=== PATIENT | female | born 1980 | race Caucasian/White ===

== ENCOUNTER 2025-05-06 08:53 | Observation (INO) | payer OTHER ==
[2025-05-06 09:31] LABS: BASO # 0.1 10^3/uL (0.0-0.2); BASO % 1.1 % (0.0-1.0); EOS # 0.0 10^3/uL (0.0-0.5); EOS % 0.5 % (0.0-3.0); LYMPH # 3.4 10^3/uL (1.5-5.0); LYMPH % 39.5 % (24.0-44.0); MONO # 0.7 10^3/uL (0.0-0.8); MONO % 7.6 % (2.0-8.0); NEUTROPHILS # 4.4 10^3/uL (1.5-8.5); NEUTROPHILS % 51.1 % (36.0-66.0); PLATELET COUNT, AUTOMATED 143 10^3/uL (150-450)
[2025-05-06 09:54] LABS: ALT/SGPT 97 U/L (7.0-40); AST/SGOT 142 U/L (<34); CALCIUM LEVEL 8.1 MG/DL (8.5-10.1); CARBON DIOXIDE LEVEL 22 MMOL/L (20-31); CHLORIDE LEVEL 105 MMOL/L (98-107); CREATININE FOR GFR 0.52 MG/DL (0.55-1.30); GLOMERULAR FILTRATION RATE > 90.0 (>58); POTASSIUM SERUM 4.9 MMOL/L (3.5-5.1); SALICYLATE LEVEL < 3.0 MG/DL (<30); SODIUM LEVEL 144 MMOL/L (136-145)
[2025-05-06 10:01] LABS: AMPHETAMINES LEVEL URINE NEGATIVE (NEGATIVE)
[2025-05-06 10:02] LABS: BARBITURATES URINE NEGATIVE (NEGATIVE); BENZODIAZEPINES URINE NEGATIVE (NEGATIVE); CANNABINOIDS URINE NEGATIVE (NEGATIVE); COCAINE METABOLITE URINE POSITIVE (NEGATIVE); METHADONE URINE NEGATIVE (NEGATIVE); OPIATES URINE NEGATIVE (NEGATIVE); PHENCYCLIDINE URINE NEGATIVE (NEGATIVE)
[2025-05-06 10:06] LABS: CPK CREATINE PHOSPHOKINASE 323 U/L (34-145); ETHYL ALCOHOL (ETHANOL) 0.520 % (0.000-0.010)
[2025-05-06] MEDS: NS (Normal Saline) 0.9% 1,000 ML IV ONE (10:45)
[2025-05-06] MEDS ORDERED: THIAMINE 200MG 2ML VIAL IV SCH (11:55)
[2025-05-06 12:18] LABS: HCG, SERUM QUALITATIVE NEGATIVE (NEGATIVE)
[2025-05-06] MEDS ORDERED: HOME MED LIST COMPLETE! XX SCH (13:05)
[2025-05-06] MEDS: THIAMINE INJection 500 MG in NS 100 ML IV SCH ×2 (13:10→22:10)
[2025-05-06] MEDS: HALOPERIDOL LACTATE 5 MG/ML VIAL IM ONE (14:04)
[2025-05-06] MEDS: diphenhydrAMINE 50 MG/ML VIAL IM ONE (14:04)
[2025-05-06] MEDS: FOLIC ACID 1 MG TAB PO SCH (16:18)
[2025-05-06] MEDS: MULTIVITAMINS/MINERALS THERAP 1 TAB PO SCH (16:19)
[2025-05-06 16:34] VITALS: BP 126/65; TEMP 99.2; O2SAT 98
[2025-05-06] MEDS: NICOTINE 21 MG/24 HR 1 EA TRANSDERMAL TD SCH (16:44)
[2025-05-06] MEDS: HALOPERIDOL LACTATE 5 MG/ML VIAL IM PRN (16:50)
[2025-05-06] MEDS ORDERED: POLYVINYL ALCOHOL OPHTH SOLN 15ML (LIQUITEARS) OU PRN (17:00)
[2025-05-06] MEDS: ONDANSETRON 4MG 2ML VIAL IV SCH (17:43)
[2025-05-06] MEDS ORDERED: ONDANSETRON 4MG 2ML VIAL IV PRN (18:00)
[2025-05-06] MEDS: NS (Normal Saline) 0.9% 1,000 ML IV SCH (19:42)
[2025-05-06 19:56] VITALS: BP 133/71; TEMP 99.3; O2SAT 99
[2025-05-06 21:35] VITALS: BP 129/71
[2025-05-07] VITALS (10 sets, daily range): BP systolic 132–165; BP diastolic 80–88; TEMP 99.1–100.4; O2SAT 97–98
[2025-05-07 05:43] LABS: PLATELET COUNT, AUTOMATED 110 10^3/uL (150-450)
[2025-05-07 06:10] LABS: CALCIUM LEVEL 8.0 MG/DL (8.5-10.1); CARBON DIOXIDE LEVEL 21 MMOL/L (20-31); CHLORIDE LEVEL 102 MMOL/L (98-107); CREATININE FOR GFR 0.64 MG/DL (0.55-1.30); GLOMERULAR FILTRATION RATE > 90.0 (>58); POTASSIUM SERUM 3.8 MMOL/L (3.5-5.1); SODIUM LEVEL 137 MMOL/L (136-145)
[2025-05-07] MEDS: ENOXAPARIN 40 MG/0.4 ML SYRINGE (J1650 PER 10MG) SC SCH (08:22)
[2025-05-07] MEDS: ACETAMINOPHEN 325 MG TAB PO PRN (12:54)
[2025-05-07] MEDS ORDERED: THERTAB19 PO (15:49)
[2025-05-07] MEDS ORDERED: THIA100TA PO (15:49)
[2025-05-07] MEDS ORDERED: FOLI1TAB11 PO (15:49)
[2025-05-07] MEDS ORDERED: THIAMINE 100 MG TAB PO SCH (16:00)
== END 2025-05-07 16:34 | disposition home or self-care (01) ==
LOC: EDBD 08:53 → M ED 13:31 → M ED INP 13:32 → M ICU 16:35
PROVIDERS: ADMIT Internal Medicine; ATTEND Internal Medicine
DX: G93.41 Metabolic encephalopathy (principal); F10.929 Alcohol use, unspecified with intoxication, unspecified; R45.851 Suicidal ideations; F43.10 Post-traumatic stress disorder, unspecified; F17.210 Nicotine dependence, cigarettes, uncomplicated; F34.9 Persistent mood [affective] disorder, unspecified; Z79.899 Other long term (current) drug therapy
CPT/HCPCS: 36415; 80048; 80076; 80143; 80307; 82077; 82550; 84443; 84703; 85025; 85027; 93005; 93041; 94760; 96361; 96372; 96374; 96375; 99285; J1630; J1650; J2405; J3411